=== PATIENT | male | born 1950 | race Caucasian/White ===

== ENCOUNTER 2016-06-07 21:08 | Emergency (ER) | payer BC ==
[2016-06-07 21:23] VITALS: BP 126/93; PULSE 63; RESP 18; TEMP 98.2; O2SAT 96
--- NOTE | 2016-06-07 21:37 | EDPHY ---
H & P Stated Complaint: laceration to Right palm, due to broken glass. Time Seen by Provider: 06/07/16 21:30 HPI/ROS: CHIEF COMPLAINT: Hand laceration HISTORY OF PRESENT ILLNESS: Patient is a 65-year-old man who comes to the emergency department complaining laceration to his right hand. He states that he broke a drinking glass just prior to arrival. He denies other injuries. He has normal range of motion and sensation. REVIEW OF SYSTEMS: Constitutional: denies: chills, fever, recent illness, recent injury EENTM: denies: blurred vision, double vision, nose congestion Respiratory: denies: cough, shortness of breath Cardiac: denies: chest pain, irregular heart rate, lightheadedness, palpitations Gastrointestinal/Abdominal: denies: abdominal pain, diarrhea, nausea, vomiting, blood streaked stools Genitourinary: denies: dysuria, frequency, hematuria, pain Musculoskeletal: denies: joint pain, muscle pain Skin: See HPI Neurological: denies: headache, numbness, paresthesia, tingling, dizziness, weakness Hematologic/Lymphatic: denies: blood clots, easy bleeding, easy bruising Immunologic/allergic: denies: HIV/AIDS, transplant EXAM: GENERAL: Well-appearing, well-nourished and in no acute distress. HEAD: Atraumatic, normocephalic. EYES: Pupils equal round and reactive to light, extraocular movements intact, sclera anicteric, conjunctiva are normal. ENT: TMs normal, nares patent, oropharynx clear without exudates. Moist mucous membranes. NECK: Normal range of motion, supple without lymphadenopathy or JVD. LUNGS: Breath sounds clear to auscultation bilaterally and equal. No wheezes rales or rhonchi. HEART: Regular rate and rhythm without murmurs, rubs or gallops. ABDOMEN: Soft, nontender, normoactive bowel sounds. No guarding, no rebound. No masses appreciated. BACK: No CVA tenderness, no spinal tenderness, step-offs or deformities EXTREMITIES: Normal range of motion, no pitting or edema. No clubbing or cyanosis. NEUROLOGICAL: Cranial nerves II through XII grossly intact. Normal speech, normal gait. 5/5 strength, normal movement in all extremities, normal sensation PSYCH: Normal mood, normal affect. SKIN: See diagram Source: Patient Exam Limitations: No limitations - Personal History Current Tetanus/Diphtheria Vaccine: Unsure Current Tetanus Diphtheria and Acellular Pertussis (TDAP): Unsure - Medical/Surgical History Hx Asthma: No Hx Chronic Respiratory Disease: No Hx Diabetes: No Hx Cardiac Disease: No Hx Renal Disease: No Hx Cirrhosis: No Hx Alcoholism: No Hx HIV/AIDS: No Hx Splenectomy or Spleen Trauma: No Other PMH: high cholesterol, GERD, HTN, restless leg syndrome. - Family History Significant Family History: No pertinent family hx - Social History Smoking Status: Never smoked Alcohol Use: Sober Drug Use: None Constitutional: Initial Vital Signs Temperature (C) 36.8 C 06/07/16 21:20 Heart Rate 63 06/07/16 21:20 Respiratory Rate 18 06/07/16 21:20 Blood Pressure 126/93 H 06/07/16 21:20 O2 Sat (%) 96 06/07/16 21:20 O2 Delivery Mode Room Air Allergies/Adverse Reactions: No Known Allergies Allergy (Unverified 06/07/16 21:23) Home Medications: Medication Instructions Recorded Gabapentin 06/07/16 Livalo 06/07/16 Mirapex 06/07/16 ED Images - Extremities Hands Front Left/Right: 1 - 2.5 cm laceration, 1 cm deep. No visible foreign body. Bleeding controlled. Visible tendon nerve or vascular injury, normal range of motion. Normal capillary refill. Medical Decision Making - Diagnostics Imaging Results: Imaging Impressions Hand X-Ray 06/07/16 21:33 Impression: Negative for osseous abnormality or radiopaque foreign body. Procedures: Procedure: Laceration repair. Verbal consent was obtained from the patient. The 2.5 cm hand laceration was anesthetized with 1% lidocaine with epi and bicarbonate locally infiltrated. The wound was irrigated copiously according to protocol, draped and explored to its base. It was approximately 1 cm deep. There were no deep structures involved. No tendon, nerve, or vascular injury was identified when explored through full range of motion. No foreign body was identified. The wound was repaired with 5.0 Prolene, 3 sutures, interrupted. The wound repair was simple without wound margin revisement or multiple flap alignment. The procedure was performed by myself. A dressing was then placed with sterile gauze and bacitracin. ED Course/Re-evaluation: Patient tolerated the procedure well. We discussed suture care and follow-up. He declines further workup or testing at this time. Differential Diagnosis: Partial list of the Differential diagnosis considered include but were not limited to; laceration, foreign body and although unlikely based on the history and physical exam, I also considered infection, tendon injury, nerve injury, vascular injury. I discussed these differential diagnoses and the plan with the patient as well as the usual and expected course. The patient understands that the diagnosis is provisional and that in medicine we are not always correct and that further workup is often warranted. Usual and customary warnings were given. All of the patient's questions were answered. The patient was instructed to return to the emergency department should the symptoms at all worsen or return, otherwise to followup with the physician as we discussed. Departure - Departure Disposition: Home, Routine, Self-Care Clinical Impression: Laceration Condition: Fair Instructions: Care For Your Stitches (ED), Laceration (ED) Additional Instructions: Have your sutures removed in 10 days Referrals: NONE *PRIMARY CARE P,. [Primary Care Provider] - As per Instructions Gerhard Villalobos DO [Medical Doctor] - As per Instructions
== END 2016-06-07 22:13 | disposition home or self-care (01) ==
LOC: CED 21:08
PROC: 0HQFXZZ Repair Right Hand Skin, External Approach (ICD-10-PCS; principal; 2016-06-07)
DX: S61.411A Laceration without foreign body of right hand, initial encounter (principal); I10 Essential (primary) hypertension; W25.XXXA Contact with sharp glass, initial encounter
CPT/HCPCS: 73130-PO